=== PATIENT | female | born 1960 | race Caucasian/White ===

== ENCOUNTER 2018-01-12 05:29 | Day surgery (SDC) | payer OTHER ==
[2018-01-12] MEDS: BUPIVACAINE 0.25% (MPF) 30 ML INJ (07:28)
[2018-01-12] MEDS ORDERED: MIDAZOLAM 1 MG/ML 2 ML INJ (07:29)
[2018-01-12] MEDS ORDERED: PROPOFOL 20 ML (07:35)
[2018-01-12] MEDS ORDERED: FENTAnyl 50 MCG/ML VIAL (07:35)
[2018-01-12] MEDS ORDERED: CEFAZOLIN 1 GM INJ (07:35)
[2018-01-12] MEDS: LIDOCAINE 1% (MPF) 30 ML INJ (07:38)
[2018-01-12] MEDS ORDERED: OXYCODONE/ACETAMINOPHEN (5/325) TAB PO ×2 (08:30)
[2018-01-12] MEDS ORDERED: morphine 2 MG INJ IV (08:30)
[2018-01-12] MEDS ORDERED: ONDANSETRON 4 MG INJ IV (08:30)
== END 2018-01-12 09:32 | disposition home or self-care (01) ==
LOC: SDS 05:29
DX: D17.1 Benign lipomatous neoplasm of skin and subcutaneous tissue of trunk (principal); E66.01 Morbid (severe) obesity due to excess calories; Z68.41 Body mass index [BMI] 40.0-44.9, adult
CPT/HCPCS: 11403; 84703; 88307